=== PATIENT | male | born 1945 | race Two or more races ===

== ENCOUNTER 2024-02-19 10:58 | Inpatient (IN) | payer MEDICARE ==
[~2024-02-19] VITALS: Ht 177.8 cm; Wt 69.4 kg
[~2024-02-19 10:58] MED LIST: BRIM0.2S17 LEFTEYE; DORZ2SOL18 LEFTEYE; FINA5TAB4 PO; LIS10T PO; SIMV40TA18 PO; TIMO0.5S66 EACHEYE; TRAV0.00 EACHEYE
[2024-02-19] MEDS: ONDANSETRON ODT 4 MG TAB PO ONE (11:30)
[2024-02-19] MEDS ORDERED: MORPHINE SULFATE INJ 2 MG/ml SYRG IM ONE (11:30)
[2024-02-19 11:56] LABS: Basophils # (auto) 0 10 ^3/uL (0-0.2); Basophils % (auto) 0.3 % (0.0-2.0); Eosinophils # (auto) 0 10 ^3/uL (0-0.8); Hematocrit 38.8 % (41.0-53.0); Hemoglobin 13.1 g/dL (13.5-17.5); Lymphocytes # (auto) 0.8 10 ^3/uL (0.4-5.4); Lymphocytes % (auto) 6.1 % (10.0-50.0); Mean Corpuscular Hemoglobin 34.1 pg (28.0-32.0); Mean Corpuscular Hgb Conc. 33.8 g/dL (32.0-36.0); Monocytes # (auto) 0.9 10 ^3/uL (0-1.3); Monocytes % (auto) 6.7 % (0.0-12.0); Neutrophils # (auto) 11.5 10 ^3/uL (1.6-8.6); Neutrophils % (auto) 86.9 % (37.0-80.0); Red Blood Cells 3.84 10^6/uL (4.5-5.90); White Blood Cell 13.2 10^3/uL (4.4-10.8)
[2024-02-19 12:16] LABS: INR 1.04 (0.9-1.15); Partial Thromboplastin Time 32.7 SEC (24.5-34.5); Prothrombin Time 10.9 sec (9.3-11.8)
[2024-02-19 12:19] LABS: Alanine Aminotransferase 38 U/L (7-40); Albumin 4.7 g/dL (3.2-4.8); Alkaline Phosphatase 77 U/L (46-116); Anion Gap 8 (5-15); Aspartate Aminotransferase 18 U/L (13-40); BUN/Creatinine Ratio 14.4 (10.0-20.0); Bilirubin, Total 1.1 mg/dL (0.2-1.0); Blood Urea Nitrogen 15 mg/dL (9-23); Calcium 9.8 mg/dL (8.7-10.4); Carbon Dioxide 25 mmol/L (20-30); Chloride 106 mmol/L (98-107); Glucose 174 mg/dL (74-106); Lipase 38 U/L (12-53); Sodium 139 mmol/L (136-145)
[2024-02-19 12:20] LABS: Total Protein 7.4 g/dL (5.7-8.2)
[2024-02-19] MEDS: levoFLOXacin 750MG 150 ML IV ONE (13:27)
[2024-02-19] MEDS: MORPHINE SULFATE INJ 2 MG/ml SYRG IV ONE (13:45)
[2024-02-19] MEDS: metroNIDAZOLE 500MG/100ML 100 ML IV ONE ×2 (14:10→19:34)
[2024-02-19] MEDS: KETOROLAC TROMETH 30 MG/ML 1ML VIAL IM ONE (16:32)
[2024-02-19] MEDS ORDERED: ACETAMINOPHEN 325 MG TAB PO PRN (16:45)
[2024-02-19] MEDS ORDERED: DEXTROSE (50%) 50ML SYRG IV PRN (16:45)
[2024-02-19] MEDS: ACCU-CHEK COMFORT CURVE STRIP VI SCH (19:22)
[2024-02-19] MEDS: SODIUM CHLORIDE 0.9% 1,000 ML IV ONE (19:25)
[2024-02-19] MEDS: InsuLIN REG 1unit/0.01ml Soln (100units/ml) SC SCH (19:25)
[2024-02-19] MEDS: PANTOPRAZOLE 40 MG/10 ML VIAL INJ IV ONE (19:31)
[2024-02-19] MEDS: cefTRIAXone 1GM/50ML D5W 50 ML IV ONE (19:31)
[2024-02-19] MEDS: SODIUM CHLORIDE 0.9% 1,000 ML IV SCH (19:51)
[2024-02-19] MEDS: ONDANSETRON HCL 4 MG/2 ML VIAL IV PRN (19:56)
[2024-02-19] MEDS: MORPHINE SULFATE INJ 2 MG/ml SYRG IV PRN (19:56)
[2024-02-19] MEDS: ATORVASTATIN 20 MG TAB PO SCH (22:00)
[2024-02-19 22:36] VITALS: BP 118/62; PULSE 64; RESP 18; TEMP 98.7
[2024-02-19 23:36] VITALS: BP 118/62; PULSE 64; RESP 18; TEMP 98.7; O2SAT 98
[2024-02-20] VITALS (8 sets, daily range): BP systolic 102–131; BP diastolic 44–64; PULSE 64–83; RESP 16–18; TEMP 97.3–99.5; O2SAT 91–100
[2024-02-20] MEDS: metroNIDAZOLE 500MG/100ML 100 ML IV SCH (06:05)
[2024-02-20] MEDS ORDERED: ceFAZolin 2 GM/D5W50ml 50 ML IV ONE (06:42)
[2024-02-20] MEDS ORDERED: SUCCINYLCHOLINE CHLORIDE 20 MG/ML 10ML VIAL IV ONE (06:51)
[2024-02-20] MEDS ORDERED: ROCURONIUM 10MG/ML 10ML VIAL IV ONE (06:51)
[2024-02-20] MEDS ORDERED: LIDOCAINE 1% INJ PF 5ML AMP ONE (06:55)
[2024-02-20] MEDS ORDERED: LIDOCAINE HCL 2% TOP JELLY 5ML TOP ONE (06:55)
[2024-02-20] MEDS ORDERED: DexAMETHasone SOD PHOS 10MG/1ML VIAL INJ ONE (06:55)
[2024-02-20] MEDS ORDERED: MEPERIDINE HCL (50 MG/ML) 1 ML VIAL ONE (06:55)
[2024-02-20] MEDS ORDERED: ONDANSETRON HCL 4 MG/2 ML VIAL ONE (06:55)
[2024-02-20] MEDS ORDERED: NEOSTIGMINE 1 MG/ML INJ (10mg/10ML VIAL) ONE (06:55)
[2024-02-20] MEDS ORDERED: MIDAZOLAM HCL 2MG/2ML 2ml VIAL (1mg/ml) ONE (06:55)
[2024-02-20] MEDS ORDERED: fentaNYL CITRATE 100 MCG/2 ML VL ONE (06:55)
[2024-02-20] MEDS ORDERED: GLYCOPYRROLATE 0.2 MG/ML 1ML VIAL ONE (06:55)
[2024-02-20] MEDS ORDERED: SODIUM CHLORIDE LOCK 10 ML ONE (06:55)
[2024-02-20] MEDS ORDERED: LIDOCAINE 1%-Mpf/Epinephrine 1:200,000 30ml VIAL ONE (06:59)
[2024-02-20] MEDS ORDERED: MORPHINE SULFATE INJ 2 MG/ml SYRG IV PRN (07:15)
[2024-02-20] MEDS ORDERED: ACCU-CHEK COMFORT CURVE STRIP VI ONE (07:15)
[2024-02-20] MEDS ORDERED: METOCLOPRAMIDE HCL 5MG/ml INJ 2ml VIAL IV ONE (07:15)
[2024-02-20] MEDS ORDERED: HYDROmorphone HCL 2 MG/ML VL/or syr IV PRN ×2 (07:15)
[2024-02-20 07:19] LABS: Basophils # (auto) 0 10 ^3/uL (0-0.2); Basophils % (auto) 0.1 % (0.0-2.0); Eosinophils # (auto) 0 10 ^3/uL (0-0.8); Hematocrit 33.5 % (41.0-53.0); Hemoglobin 11.5 g/dL (13.5-17.5); Lymphocytes # (auto) 1.3 10 ^3/uL (0.4-5.4); Lymphocytes % (auto) 8.4 % (10.0-50.0); Mean Corpuscular Hemoglobin 34.3 pg (28.0-32.0); Mean Corpuscular Hgb Conc. 34.3 g/dL (32.0-36.0); Mean Corpuscular Volume 99.9 fL (80.0-100.0); Monocytes # (auto) 1.2 10 ^3/uL (0-1.3); Monocytes % (auto) 7.9 % (0.0-12.0); Neutrophils # (auto) 12.4 10 ^3/uL (1.6-8.6); Neutrophils % (auto) 83.6 % (37.0-80.0); Red Blood Cells 3.35 10^6/uL (4.5-5.90); Red Cell Distribution Width 13.1 % (11.8-14.3); White Blood Cell 14.9 10^3/uL (4.4-10.8)
[2024-02-20 07:31] LABS: Alanine Aminotransferase 24 U/L (7-40); Albumin 3.9 g/dL (3.2-4.8); Alkaline Phosphatase 63 U/L (46-116); Anion Gap 8 (5-15); Aspartate Aminotransferase 15 U/L (13-40); BUN/Creatinine Ratio 14.4 (10.0-20.0); Bilirubin, Total 1.3 mg/dL (0.2-1.0); Blood Urea Nitrogen 16 mg/dL (9-23); Carbon Dioxide 24 mmol/L (20-30); Chloride 105 mmol/L (98-107); Glucose 154 mg/dL (74-106); Potassium 3.7 mmol/L (3.5-5.1); Sodium 137 mmol/L (136-145); Total Protein 6.3 g/dL (5.7-8.2)
[2024-02-20] MEDS ORDERED: KETAMINE 50mg/ML 1ml syringe ONE (07:32)
[2024-02-20] MEDS ORDERED: SUGAMMADEX 200mg/2ml Vial (100MG/ML) IV ONE (07:58)
[2024-02-20] MEDS ORDERED: TIMOLOL MAL 0.5% OPTH(EYE) SOL 5ML EACHEYE SCH (10:00)
[2024-02-20] MEDS: cefTRIAXone 1GM/50ML D5W 50 ML IV SCH (11:07)
[2024-02-20] MEDS: FINASTERIDE 5 MG TAB PO SCH (11:08)
[2024-02-20] MEDS: PANTOPRAZOLE 40 MG/10 ML VIAL INJ IV SCH (11:08)
[2024-02-20] MEDS: LISINOPRIL 5 MG TAB PO SCH (11:09)
[2024-02-20] MEDS: HYDROcodone-ACET 5/325MG TAB PO PRN (11:26)
[2024-02-20] MEDS: BRIMONIDINE 0.2% OPTH Soln 5ml LEFTEYE SCH (14:00)
[2024-02-20] MEDS: TIMOLOL LEFTEYE SCH (14:00)
[2024-02-20] MEDS: DORZOLAMIDE HCL LEFTEYE SCH (14:00)
[2024-02-21] VITALS (9 sets, daily range): BP systolic 82–131; BP diastolic 39–69; PULSE 57–82; RESP 14–20; TEMP 97.9–98.6; O2SAT 92–98
[2024-02-21] MEDS ORDERED: SOD CHL 0.45% 1,000 ML IV SCH (04:15)
[2024-02-21] MEDS: SOD CHL 0.45% 1,000 ML IV SCH (04:43)
[2024-02-21 07:01] LABS: Chloride 106 mmol/L (98-107); Potassium 3.6 mmol/L (3.5-5.1); Sodium 136 mmol/L (136-145)
[2024-02-21 07:02] LABS: Anion Gap 8 (5-15); Carbon Dioxide 22 mmol/L (20-30)
[2024-02-21 07:03] LABS: Calcium 8.3 mg/dL (8.5-10.1)
[2024-02-21 07:08] LABS: Glucose 143 mg/dL (74-106)
[2024-02-21 07:16] LABS: BUN/Creatinine Ratio 15.2 (10.0-20.0); Blood Urea Nitrogen 17 mg/dL (9-23)
[2024-02-21 07:31] LABS: Basophils # (auto) 0 10 ^3/uL (0-0.2); Basophils % (auto) 0.2 % (0.0-2.0); Eosinophils # (auto) 0 10 ^3/uL (0-0.8); Hematocrit 33.5 % (41.0-53.0); Hemoglobin 11.1 g/dL (13.5-17.5); Lymphocytes % (auto) 12.5 % (10.0-50.0); Mean Corpuscular Hemoglobin 34.1 pg (28.0-32.0); Mean Corpuscular Hgb Conc. 33.1 g/dL (32.0-36.0); Mean Corpuscular Volume 102.9 fL (80.0-100.0); Monocytes # (auto) 0.7 10 ^3/uL (0-1.3); Monocytes % (auto) 9.1 % (0.0-12.0); Neutrophils # (auto) 6.3 10 ^3/uL (1.6-8.6); Neutrophils % (auto) 78.2 % (37.0-80.0); Nucleated Red Blood Cells % 0.2 %; Red Blood Cells 3.26 10^6/uL (4.5-5.90); Red Cell Distribution Width 13.4 % (11.8-14.3); White Blood Cell 8.1 10^3/uL (4.4-10.8)
[2024-02-21] MEDS: SODIUM CHLORIDE 0.9% 500 ML IV ONE ×2 (08:30→08:45)
[2024-02-21] MEDS: SODIUM CHLORIDE 0.9% 1,000 ML IV SCH (11:30)
[2024-02-22 00:53] VITALS: BP_SYST 109; BP_SYST 133; BP_DIAS 52; BP_DIAS 76; PULSE 61; PULSE 82; RESP 18; TEMP 98.6; O2SAT 94; O2SAT 97
[2024-02-22 05:00] VITALS: BP 129/61; PULSE 66; RESP 17; TEMP 98.1; O2SAT 94
[2024-02-22 09:00] VITALS: BP 133/69; PULSE 64; RESP 20; TEMP 97.9; O2SAT 95
[2024-02-22] MEDS: SODIUM CHLORIDE 0.9% 1,000 ML IV ONE (11:00)
[2024-02-22] MEDS: DOCUSATE ORAL LIQUID 100 MG/10 ML UD GT ONE (13:26)
[2024-02-22] MEDS ORDERED: LEVO500T91 PO (13:48)
[2024-02-22] MEDS ORDERED: METR-344 PO (13:48)
[2024-02-22] MEDS ORDERED: HYDR-4902 PO (13:48)
[2024-02-22 15:13] VITALS: BP 125/60; PULSE 69; RESP 20; TEMP 36.6; O2SAT 92
== END 2024-02-22 16:25 | disposition home or self-care (01) | DRG 853 ==
LOC: ER 10:58 → WEST WING 16:39 → OVERFLOW 16:39 → WEST WING 23:32
PROVIDERS: ADMIT Nurse Practitioner Family; ATTEND Family Medicine
PROC: 0DTJ4ZZ Resection of Appendix, Percutaneous Endoscopic Approach (ICD-10-PCS; principal; 2024-02-20 07:16)
DX: A41.9 Sepsis, unspecified organism (principal); K35.32 Acute appendicitis with perforation, localized peritonitis, and gangrene, without abscess; E11.65 Type 2 diabetes mellitus with hyperglycemia; I10 Essential (primary) hypertension; E78.5 Hyperlipidemia, unspecified; Z79.899 Other long term (current) drug therapy; Z79.4 Long term (current) use of insulin; I95.9 Hypotension, unspecified
CPT/HCPCS: 36415; 71045; 74176; 80048; 80053; 82962; 83036; 83605; 83690; 83880; 84484; 85025; 85610; 85730; 87040; 93005; 96365; 96366; 96368; C9113; G0378; J0330; J1100; J1815; J1885; J1956; J2250; J2405; J3490